=== PATIENT | female | born 1950 | race Caucasian/White ===

== ENCOUNTER → 2019-08-31 | Outpatient (CLI) | payer BC | END | disposition home or self-care (01) | LOC: RAD 09:13 | PROVIDERS: ATTEND Internal Medicine | DX: M17.31 Unilateral post-traumatic osteoarthritis, right knee (principal) | CPT/HCPCS: 73562 ==

== ENCOUNTER → 2019-09-28 | Outpatient (CLI) | payer BC ==
[2019-09-28 11:30] LABS: BASOPHILS % 0.5 % (0.0-2.0); EOSINOPHILS % 0.5 % (0.0-5.0); HEMATOCRIT. 44.3 % (36.0-48.0); HEMOGLOBIN. 14.8 g/dL (12.0-16.0); LYMPHOCYTES % 24.7 % (20.0-50.0); MEAN CORPUSCULAR HEMOGLOBIN 36.7 pg (28.0-32.0); MEAN CORPUSCULAR VOLUME 109.6 fL (81.0-99.0); MEAN PLATELET VOLUME 7.4 fl (7.4-10.4); MONOCYTES % 7.2 % (2.0-8.0); NEUTROPHILS % 67.1 % (40.0-76.0); PLATELET 228 x1000/uL (130-400); RED BLOOD CELL COUNT 4.04 mill/uL (4.2-5.4); RED CELL DISTRIBUTION WIDTH 13.9 % (11.6-14.6)
[2019-09-28 11:37] LABS: CHLORIDE 103 mEq/L (98-107)
[2019-09-28 11:45] LABS: LDL CHOLESTEROL 107 mg/dL (5-100)
[2019-09-28 11:46] LABS: T4 FREE 0.82 ng/dL (0.76-1.46)
[2019-09-28 11:52] LABS: HDL CHOLESTEROL 137 mg/dL (40-59)
[2019-09-28 12:06] LABS: CLARITY URINE CLOUDY (CLEAR); COLOR URINE DK YELLOW (YELLOW); KETONES URINE 1+ (NEGATIVE); LEUKOCYTE ESTERASE URINE NEGATIVE (NEGATIVE); NITRITE URINE NEGATIVE (NEGATIVE); OCCULT BLOOD URINE NEGATIVE (NEGATIVE); PH URINE 5.5 (4.5-8.0); PROTEIN URINE NEGATIVE (NEGATIVE); SPECIFIC GRAVITY URINE 1.018 (1.005-1.030)
== END | disposition home or self-care (01) ==
LOC: LAB 10:45
PROVIDERS: ATTEND Internal Medicine
DX: Z00.00 Encounter for general adult medical examination without abnormal findings (principal); R63.4 Abnormal weight loss
CPT/HCPCS: 36415; 80053; 80061; 81003; 83036; 84439; 84443; 85025

== ENCOUNTER → 2019-11-22 | Outpatient (CLI) | payer BC ==
[2019-11-22 13:14] LABS: CHLORIDE 106 mEq/L (98-107)
== END | disposition home or self-care (01) ==
LOC: LAB 11:42
PROVIDERS: ATTEND Internal Medicine
DX: E55.9 Vitamin D deficiency, unspecified (principal); R00.0 Tachycardia, unspecified; R00.2 Palpitations
CPT/HCPCS: 36415; 80053; 82306; 84439; 84443

== ENCOUNTER → 2019-12-03 | Outpatient (CLI) | payer BC | END | disposition home or self-care (01) | LOC: LAB 09:15 | PROVIDERS: ATTEND Internal Medicine | DX: R05 Cough (principal); Z20.828 Contact with and (suspected) exposure to other viral communicable diseases | CPT/HCPCS: U0003-CS ==

== ENCOUNTER → 2019-12-21 | Outpatient (CLI) | payer BC ==
[~2019-12-21] MED LIST: REGADENOSON 0.4 MG/5 ML IV ONE
== END | disposition home or self-care (01) ==
LOC: NM 07:48
PROVIDERS: ATTEND Specialist
DX: I11.9 Hypertensive heart disease without heart failure (principal); R07.9 Chest pain, unspecified
CPT/HCPCS: 78452; 93306; A9500; J2785

== ENCOUNTER → 2020-01-22 | Outpatient (CLI) | payer BC | END | disposition home or self-care (01) | LOC: LAB 07:50 | PROVIDERS: ATTEND Internal Medicine | DX: Z01.818 Encounter for other preprocedural examination (principal); Z11.59 Encounter for screening for other viral diseases | CPT/HCPCS: 87635; C9803 ==

== ENCOUNTER → 2020-01-25 | Outpatient (CLI) | payer BC | END | disposition home or self-care (01) | LOC: MAMMO 08:30 | PROVIDERS: ATTEND Internal Medicine | DX: Z12.31 Encounter for screening mammogram for malignant neoplasm of breast (principal); Z13.820 Encounter for screening for osteoporosis | CPT/HCPCS: 77067; 77080 ==